=== PATIENT | female | born 1935 | race Native Hawaiian/Other Pacific Islander ===

== ENCOUNTER 2018-08-17 10:36 | Outpatient (CLI) | payer OTHER ==
[2018-08-17 10:54] LABS: PLATELET COUNT 207 K/uL (152-353)
[2018-08-17 11:16] LABS: POTASSIUM 4.1 mmol/L (3.6-5.2)
== END 2018-08-17 23:37 | disposition home or self-care (01) ==
LOC: LABW 10:36
PROVIDERS: Nurse Practitioner
DX: I10 Essential (primary) hypertension (principal); E78.00 Pure hypercholesterolemia, unspecified; E11.43 Type 2 diabetes mellitus with diabetic autonomic (poly)neuropathy; E55.9 Vitamin D deficiency, unspecified; R53.82 Chronic fatigue, unspecified; E53.8 Deficiency of other specified B group vitamins
CPT/HCPCS: 36415; 80053; 80061; 82043; 82306; 82570; 82607; 83036; 84443; 85027

== ENCOUNTER 2021-11-07 14:14 | Outpatient (CLI) | payer OTHER ==
[2021-11-07 14:35] LABS: POTASSIUM 3.9 mmol/L (3.6-5.2)
== END 2021-11-07 19:22 | disposition home or self-care (01) ==
LOC: LABW 14:14
PROVIDERS: ATTEND Internal Medicine Cardiovascular Disease
DX: Z79.899 Other long term (current) drug therapy (principal)
CPT/HCPCS: 36415; 80048

== ENCOUNTER 2022-06-17 10:37 | Outpatient (CLI) | payer OTHER | END 2022-06-17 19:50 | disposition home or self-care (01) | LOC: US 10:37 | PROVIDERS: ATTEND Internal Medicine Cardiovascular Disease | DX: I10 Essential (primary) hypertension (principal) ==